=== PATIENT | male | born 1965 | race Caucasian/White ===

== ENCOUNTER 2024-08-26 18:05 | Emergency (ER) | payer MEDICAID, SELFPAY ==
[2024-08-26 18:41] VITALS: BP 216/100; BP 217/116; PULSE 60; RESP 18; TEMP 36.5; O2SAT 99; BMI 29.0
[2024-08-26 19:32] VITALS: BP 202/117; PULSE 74; RESP 19; TEMP 36.6; O2SAT 98
--- NOTE | 2024-08-26 20:31 | EKG_ITS ---
[facility] (Formerly [facility])[3] Test Date: 2024-08-26 Pat Name: JORGE SCOTT Department: Room: - Gender: Male Town Administrator: : 1965 Requested By: ED Temporary Provider Order Number: [id number] Reading MD: ED Temporary Provider Measurements Intervals [place] Rate: 51 P: 18 MA: 156 QRS: 7 QRSD: 118 T: 45 QT: 441 QTc: 409 Interpretive Statements SINUS BRADYCARDIA WITH OCCASIONAL VENTRICULAR PREMATURE COMPLEXES MODERATE INTRAVENTRICULAR CONDUCTION DELAY [110+ ms QRS DURATION] Compared to ECG 07/09/2017 08:44:45 Ventricular premature complex(es) now present Intraventricular conduction delay now present Sinus rhythm no longer present /store/S0/[id number]/ecg/[id number].pdf
[2024-08-26 21:23] LABS: Collection Type, Urine Clean Catch
--- NOTE | 2024-08-26 21:32 | PD.EDMEDCL ---
ED Medical Clearance PEARL/TREY General Chief complaint: Medical Clearance Stated complaint: LONG TERM CLEARANCE Time Seen by Provider: 08/26/24 20:27 Source: patient Arrival date/time: 08/26/24 18:05 PEARL YANG MD complaint: medical clearance requested Related Information Previous Rx's ?Medication ?Instructions ?Recorded albuterol sulfate 90 mcg/actuation 2 puff inhalation Q6H PRN 07/09/17 aerosol inhaler shortness of breath or wheezing #8 grams aspirin 81 mg tablet,delayed 81 mg PO QDAY #30 tabs 07/09/17 release (Adult Low Dose Aspirin) clonidine HCl 0.1 mg tablet 0.1 mg PO BID #60 tabs 07/09/17 levetiracetam 500 mg tablet 500 mg PO BID #30 tabs 02/05/23 (Keppra) Allergies Allergy/AdvReac Type Severity Reaction Status Date / Time No Known Allergies Allergy Verified 08/26/24 20:10 ED Exam Narrative Physical exam: Physical Exam GENERAL: NAD, AAOx3, lethargic HEENT: Moist mucosa. Eyes open, symmetrical, & clear CARDIO: Heart RRR, no obvious murmurs PULM: No noted coughing/dyspnea CTA B/L, no R/W/R GI: Abdomen soft, nondistended, no pain on palpation. BSx4 SKIN/MSK/EXT: No wounds/rashes/edema/amputations, no pain on palpation. Pedal pulses present B/L Course Course Course Narrative: 0 EKG, CBC, CMP, BNP, tropes, mag ordered 4 re-evaluated BP improving currently 169/75 after clonidine 0.1mg x1 7 BP re-evaluated found to be 160/88 on manual BP cuff, CBC unremarkable, CMP unremarkable, UA negative for UTI, UTox positive fentanyl, amphetamine, THC Quality Measures none Orders Category Date Time Status EKG (ED ONLY) *Do not use* NOW Care 08/26/24 20:31 Completed EKG (ED ONLY) *Do not use* NOW Care 08/26/24 21:42 Completed EKG (ED Only) Stat Exams 08/26/24 20:31 Draft EKG (ED Only) Stat Exams 08/26/24 21:42 Ordered XR chest 1V portable Stat Exams 08/26/24 21:43 Completed B-Type Natriuretic Peptide Stat Lab 08/26/24 22:05 Completed CBC Stat Lab 08/26/24 22:05 Completed CMP [Comprehensive Metabolic Panel] Stat Lab 08/26/24 22:05 Completed Drug Screen,Urine Stat Lab 08/26/24 21:16 Completed LDH (Lactate Dehydrogenase) Stat Lab 08/26/24 22:05 Completed Magnesium Stat Lab 08/26/24 22:05 Completed Troponin I Stat Lab 08/26/24 22:05 Completed Urinalysis Stat Lab 08/26/24 21:16 Completed cloNIDine HCL [Catapres] Med 08/26/24 21:23 Discontinued 0.1 mg PO X1 ONE cloNIDine HCL [Catapres] Med 08/26/24 22:43 Discontinued 0.1 mg PO X1 ONE EKG (RT) Stat RT 08/26/24 21:05 Stop Req Vital Signs Vital signs: Vital Signs Temperature 97.7 F 08/26/24 18:41 Pulse Rate 60 08/26/24 18:41 Respiratory Rate 18 08/26/24 18:41 Blood Pressure 216/100 H 08/26/24 18:41 Pulse Oximetry (%) 99 08/26/24 18:41 Oxygen Delivery Method Room Air 08/26/24 18:41 Medical Clearance MDM Narrative MDM Narrative:: 59-year-old male coming in for intermediate clearance. The patient has a history of hypertension and takes clonidine. He also takes seizure medication no history of seizure in the emergency department. The patient was seen initially and is noted that he had a blood pressure that was high at 216/100. The patient was given clonidine and labs were sent. Patient otherwise was screened for hypertensive urgency versus emergency. Patient is still asymptomatic not complaining of hypertension, dizziness, and at this time I do not believe the patient needs a head CT. Repeat blood pressure 169/79. Patient blood pressure was checked manually as well. He is sleeping comfortably. I will not be able to decrease this patient's blood pressure more than what it is. He is cleared for clearance to go to intermediate. Patient data External records reviewed:: [facility] previous records (Medication refill in the past.) Clinical information provided by:: patient Social determinants that could affect healthcare access:: none (Outpatient medical clearance) Patient has the following chronic illnesses:: Seizure disorder How is presenting disease/condition affected by chronic disease/condition?: uneffected by Evaluation data The following diagnostics were reviewed and interpreted by me:: lab results (Drug screen is positive for fentanyl and amphetamine. Positive marijuana, no leukocytes, negative for protein) and EKG tracing(s) Lab and/or radiology exams considered but not ordered:: None Interpretation Summary: None Medications / Prescriptions Medications or Prescriptions considered but not ordered:: None Medication administrations:: Medication Administration History Discontinued Medications Clonidine (Clonidine Hcl 0.1 Mg Tablet) 0.1 mg PO X1 ONE Stop: 08/26/24 21:24 Last Admin: 08/26/24 22:04 Dose: 0.1 mg Documented By: GISELLE Clonidine (Clonidine Hcl 0.1 Mg Tablet) 0.1 mg PO X1 ONE Stop: 08/26/24 22:44 Last Admin: 08/26/24 22:54 Dose: 0.1 mg Documented By: GISELLE see above Consultations Consultation(s) initiated? (list below): No Diagnosis Medical Clearance Differential Diagnosis: other (Hypertensive urgency, emergency, drug use, noncompliant with medications, EKG changes) Most likely diagnosis given after review of the tests above:: Asymptomatic hypertension, drug use, Admission Indicated Admission indicated?: not indicated Explain why admission is indicated or not indicated:: At this time the patient is asymptomatic. Blood pressure improved to 169 systolic. Admission Request Was there a request for admission?: No Disposition Plan Disposition Plan: Discharge Discharge Attestation Discharge Attestation: The patient and all family members were given an opportunity to ask questions and understood the discharge instructions. Discharge instructions specifically effects, indications for sooner follow up or return to the emergency department, and the expected course of current diagnosis. Patient condition: Stable Discharge Plan Plan Patient Disposition: Half-Way/Court/Law Patient condition on transfer: Stable Prescriptions/Referrals Prescriptions/Med Rec: No Action clonidine HCl 0.1 mg tablet 0.1 mg PO BID Qty: 60 0RF aspirin [Adult Low Dose Aspirin] 81 mg tablet,delayed release (DR/EC) 81 mg PO QDAY Qty: 30 0RF albuterol sulfate 90 mcg/actuation HFA aerosol inhaler 2 puff INH Q6H PRN (Reason: shortness of breath or wheezing) Qty: 8 0RF Rx Instructions: administer with spacer levetiracetam [Keppra] 500 mg tablet 500 mg PO BID Qty: 30 1RF Referrals: Kan Jc MD [Primary Care Provider] - In 1 week Problem List Clinical Impression: Non compliance w medication regimen Patient/Caregiver Discharge Instructions Additional Instructions: Please take your medications as prescribed. Should any symptoms recur or worsen patient is instructed to return to the ED. Print Language: Tajik
--- NOTE | 2024-08-26 21:43 | XR_ITS ---
Examination: AP chest single view TECHNIQUE: AP portable semiupright chest single view Date and time: September 15, 2024 1003 hours INDICATIONS: Chest pain shortness of breath today FINDINGS: Comparison July 20, 2015 Normal heart size Minor atelectasis left base No pneumonia or pulmonary edema IMPRESSION: Minor subsegmental atelectasis left base
[2024-08-26 22:04] VITALS: BP 184/93; PULSE 84
[2024-08-26 22:05] LABS: Bilirubin,Urine Negative (Negative); Blood,Urine Negative (Negative); Clarity,Urine Clear (Clear/Hazy); Color,Urine Yellow (Lt Yel-Yel); Glucose, Urine Negative (Negative); Ketones,Urine 1+ (Negative); Leukocyte Esterase,Urine Negative (Negative); Nitrite,Urine Negative (Negative); PH,Urine 5.5 (5.0-7.0); Protein,Urine Negative (Neg - Trace); RBC,Urine 1 /hpf (0-3); Specific Gravity,Urine 1.027 (1.001-1.035); Squamous Epithelial Cell,Urine < 1 /hpf (0-5); Urobilinogen,Urine Negative mg/dL (0.0-1.0); WBC,Urine 1 /hpf (0-5)
[2024-08-26 22:08] VITALS: BP 185/93; PULSE 71; RESP 19; TEMP 36.5; O2SAT 98
[2024-08-26 22:11] LABS: Amphetamine/Methamp Scrn,U Positive (Negative); Barbiturate Screen,Urine Negative (Negative); Benzodiazepines Screen,Urine Negative (Negative); Benzoylecgonine Screen, Ur Negative (Negative); Fentanyl Screen,Urine Positive (Negative); Opiate Screen,Urine Negative (Negative); THC Screen,Urine Positive (Negative)
[2024-08-26 22:41] VITALS: BP 160/88; PULSE 82; RESP 20; TEMP 36.7; O2SAT 98
[2024-08-26 22:41] LABS: Basophils # (Auto) 0.0 Thou/mm3 (0.0-0.2); Basophils % (Auto) 0 % (0-2.5); Eosinophils # (Auto) 0.1 Thou/mm3 (0.0-0.5); Eosinophils % (Auto) 1 % (0-10); Hematocrit 41.2 % (41.0-53.0); Hemoglobin 14.2 g/dL (13.5-16.0); Immature Granulocytes Auto 0.01 Thou/mm3 (0.00-0.00); Lymphocytes # (Auto) 1.7 Thou/mm3 (1.0-4.8); Lymphocytes % (Auto) 21 % (10-50); Mean Corpuscular HGB Conc 34.5 g/dl (31.0-37.0); Mean Corpuscular Hemoglobin 28.7 pg (25.0-35.0); Mean Corpuscular Volume 83 fL (80-100); Monocytes # (Auto) 0.5 Thou/mm3 (0.0-0.8); Monocytes % (Auto) 6 % (0-12); Neutrophils # (Auto) 5.7 Thou/mm3 (1.8-7.7); Neutrophils % (Auto) 71 % (37-80); Nucleated Red Blood Cell # 0.00 Thou/mm3 (0.00-0.00); Nucleated Red Blood Cell % 0 /100 WBC (0); Platelet Count 440 Thou/mm3 (140-440); RDW Standard Deviation 43.5 fL (35.1-43.9); Red Blood Count 4.94 Miln/mm3 (4.50-5.90); White Blood Count 8.1 Thou/mm3 (3.8-10.6)
[2024-08-26 22:54] VITALS: BP 160/88; PULSE 100
[2024-08-26 23:01] LABS: B-Type Natriuretic Peptide < 20 pg/mL (0-100)
[2024-08-26 23:15] LABS: Alanine Aminotransferase 13 U/L (10-49); Albumin, Serum 4.6 gm/dL (3.5-5.0); Albumin/Globulin Ratio 1.8 (1.2-2.2); Alkaline Phosphatase 73 U/L (46-116); Anion Gap 9 (7-16); Aspartate Amino Transferase 22 U/L (0-34); BUN/Creatinine Ratio 14 Ratio (12-20); Bilirubin,Total 0.8 mg/dL (0.3-1.2); Blood Urea Nitrogen 11 mg/dL (9-23); Calcium 9.9 mg/dL (8.3-10.6); Calcium (Corrected) 9.9 mg/dL (8.5-10.1); Carbon Dioxide 24.7 mMol/L (20.0-31.0); Chloride 103 mMol/L (98-107); Creatinine (Component) 0.8 mg/dL (0.6-1.3); Estimated Creatinine Clearance 101.0 mL/min (>60); Globulin 2.6 gm/dL (2.3-3.5); Glucose 97 mg/dL (74-106); Magnesium 2.2 mg/dL (1.6-2.6); Osmolality,Calculated 273 (275-295); Potassium 3.8 mMol/L (3.4-5.1); Sodium 137 mMol/L (136-145); Total Protein 7.2 gm/dL (5.7-8.2); Troponin I < 0.020 ng/mL (0.0-0.045); eGFR > 60 See Note
[2024-08-26 23:25] LABS: LDH (Lactate Dehydrogenase) 259 U/L (120-246)
== END 2024-08-26 23:10 ==
PROVIDERS: Student in an Organized Health Care Education/Training Program; Emergency Provider Emergency Medicine; PCP Family Medicine
DX: R00.1 Bradycardia, unspecified (principal); I49.3 Ventricular premature depolarization
CPT/HCPCS: 36415; 71045; 80053; 80307; 81001; 83615; 83735; 83880; 84484; 85025; 93005; 99283; A9270